=== PATIENT | female | born 1950 | race Caucasian/White ===

== ENCOUNTER 2020-06-08 22:28 | Inpatient (IN) | payer MEDICARE ==
[~2020-06-08] VITALS: Ht 165.1 cm; Wt 82.3 kg
[2020-06-08] MEDS ORDERED: SODIUM CHLORIDE 0.9% 1,000 ML IV ONE (22:41)
--- NOTE | 2020-06-08 22:42 | NUR ---
WILL HOLD DOPATMINE DRIP PER MD ALEXANDER. WILL AWAIT FOR BASELINE BLOOD PRESSURE TO EVAQLUATE NEEDS FOR MEDICATIONS.
[2020-06-08] MEDS ORDERED: EZET10TA70 PO (22:57)
[2020-06-08] MEDS ORDERED: ALPR0.5T7 PO (22:57)
[2020-06-08] MEDS ORDERED: ASPI-496 PO (22:57)
[2020-06-08] MEDS ORDERED: ZOLP10TA PO (22:57)
[2020-06-08] MEDS ORDERED: ALBU90AE INH ×2 (22:57)
[2020-06-08] MEDS ORDERED: MONT10TA6 PO (22:57)
[2020-06-08] MEDS ORDERED: TIZA4CAP PO (22:57)
[2020-06-08] MEDS ORDERED: ATOR-2 PO (22:57)
[2020-06-08] MEDS ORDERED: VENL150C PO (22:57)
[2020-06-08] MEDS ORDERED: FLUT1AER INH (22:57)
[2020-06-08] MEDS ORDERED: LEVO125T5 PO (22:57)
[2020-06-08] MEDS ORDERED: METO25TA35 PO (22:57)
[2020-06-08] MEDS ORDERED: SODIUM CHLORIDE FLUSH 10ML SYR IVF ONE (23:00)
[2020-06-08] MEDS ORDERED: ONDANSETRON 2MG/ML, 2ML IVPush ONE (23:00)
[2020-06-08] MEDS ORDERED: MORPHINE SULFATE 4 MG/ML, 1ML IVPush PRN (23:00)
--- NOTE | 2020-06-08 23:18 | NUR ---
PATIENT UPDATED ON PLAN OF CARE. PUREWICK PLACED TO AID PATIENT IN URINATION. PATIENT IS UNSAFE TO STAND UP R/T BLOOD PRESSURE.
[2020-06-09] VITALS (12 sets, daily range): BP systolic 130–170; BP diastolic 80–95
--- NOTE | 2020-06-09 00:01 | NUR ---
PT REQUESTING ICE CHIPS. INFORMED. ICE CHIPS PROVIDED PT PLEASANT AND DENIES FURTHER NEEDS AT THIS TIME.
[2020-06-09] MEDS ORDERED: ACETAMINOPHEN 325 MG TABLET PO PRN (00:30)
[2020-06-09] MEDS: HEPARIN 5,000 UNITS/ML, 1ML SQ SCH ×3 (01:56→17:53)
[2020-06-09] MEDS: SODIUM CHLORIDE 0.9% 1,000 ML IV SCH ×3 (01:57→08:04)
[2020-06-09] MEDS ORDERED: CEFTRIAXONE PMX 1GM/50ML 50 ML IV SCH (02:00)
[2020-06-09 02:59] LABS: CHLORIDE,URINE RANDOM 72 mmol/L; POTASSIUM,URINE RANDOM 35 mmol/L; SODIUM,URINE RANDOM 56 mmol/L
[2020-06-09] MEDS: LEVOTHYROXINE 125 MCG TABLET PO SCH (05:43)
[2020-06-09] MEDS: EZETIMIBE 10 MG TABLET PO SCH (08:01)
[2020-06-09] MEDS: MONTELUKAST 10 MG TABLET PO SCH (08:02)
[2020-06-09] MEDS: SENNA/DOCUSATE TABLET PO SCH (08:02)
[2020-06-09] MEDS: ASPIRIN 81 MG TABLET EC PO SCH (08:02)
[2020-06-09] MEDS: NICOTINE 14MG/24 HR PATCH.TD24 TD SCH (08:02)
[2020-06-09] MEDS: FLUTICASONE/VILANTEROL 100-25MCG/INH INH SCH (10:06)
[2020-06-09] MEDS ORDERED: ZOLPIDEM 10MG TABLET PO PRN (13:30)
[2020-06-09] MEDS: METOPROLOL TARTRATE 25 MG TAB PO SCH (20:47)
[2020-06-09] MEDS ORDERED: ATORVASTATIN 80 MG TABLET PO SCH (21:00)
[2020-06-10 00:58] VITALS: BP 148/84
[2020-06-10] MEDS: HEPARIN 5,000 UNITS/ML, 1ML SQ SCH ×3 (02:21→17:21)
[2020-06-10 05:22] LABS: BASOPHILS % (AUTO) 1 % (0-1); EOSINOPHILS # (AUTO) 0.79 x10^3/uL (0-0.4); EOSINOPHILS % (AUTO) 8 % (1-7); LYMPHOCYTES % (AUTO) 23 % (22-44); MD NO; MEAN CORPUSCULAR HEMOGLOBIN 33.6 pg (27.0-34.8); MEAN CORPUSCULAR HGB CONC 33.2 g/dL (32.4-35.8); MEAN CORPUSCULAR VOLUME 101.3 fL (80-100); MEAN PLATELET VOLUME 9.4 fL (7.4-10.4); MONOCYTES # (AUTO) 0.55 x10^3/uL (0.2-0.8); MONOCYTES % (AUTO) 6 % (2-9); NEUTROPHILS # (AUTO) 6.15 x10^3/uL (1.8-6.8); NEUTROPHILS % (AUTO) 62 % (42-75); PLATELET COUNT 242 x10^3/uL (130-400); RED BLOOD COUNT 3.67 x10^6/uL (3.82-5.3); RED CELL DISTRIBUTION WIDTH 13.3 % (9.6-15.2)
[2020-06-10 05:35] LABS: CHLORIDE 113 mmol/L (98-107)
[2020-06-10 05:46] LABS: ANION GAP 7 mmol/L (5-15); CALCIUM 8.5 mg/dL (8.5-10.1); CREATININE 1.06 mg/dL (0.55-1.02)
[2020-06-10] MEDS: LEVOTHYROXINE 125 MCG TABLET PO SCH (06:03)
[2020-06-10] MEDS ORDERED: AMLODIPINE 10 MG TAB PO ONE (07:30)
[2020-06-10] MEDS: FLUTICASONE/VILANTEROL 100-25MCG/INH INH SCH (07:54)
[2020-06-10] MEDS: ASPIRIN 81 MG TABLET EC PO SCH (07:55)
[2020-06-10] MEDS: MONTELUKAST 10 MG TABLET PO SCH (07:56)
[2020-06-10] MEDS: METOPROLOL TARTRATE 25 MG TAB PO SCH (07:56)
[2020-06-10] MEDS: SENNA/DOCUSATE TABLET PO SCH (07:57)
[2020-06-10] MEDS: EZETIMIBE 10 MG TABLET PO SCH (07:57)
[2020-06-10] MEDS: NICOTINE 14MG/24 HR PATCH.TD24 TD SCH (07:58)
[2020-06-10 08:35] VITALS: BP 163/88
[2020-06-10] MEDS ORDERED: TIZANIDINE 4MG TABLET PO SCH (09:00)
[2020-06-10] MEDS ORDERED: ALBUTEROL HFA 90 MCG/SPRAY INH SCH (09:00)
[2020-06-10] MEDS ORDERED: VENLAFAXINE XR 37.5MG CAP.ER.24H PO SCH (09:00)
[2020-06-10 12:07] VITALS: BP 134/82
[2020-06-10] MEDS ORDERED: CEFD300C37 PO (14:25)
== END 2020-06-10 19:38 | disposition home or self-care (01) | DRG 871 ==
LOC: ED 23:24 → EDIP 06-09 00:36 → 4WST 06-09 01:41
PROVIDERS: ADMIT Family Medicine; ATTEND Internal Medicine
DX: A41.9 Sepsis, unspecified organism (principal); N17.0 Acute kidney failure with tubular necrosis; F13.20 Sedative, hypnotic or anxiolytic dependence, uncomplicated; E87.2 Acidosis; N30.90 Cystitis, unspecified without hematuria; J44.9 Chronic obstructive pulmonary disease, unspecified; F17.210 Nicotine dependence, cigarettes, uncomplicated; E78.00 Pure hypercholesterolemia, unspecified; E03.9 Hypothyroidism, unspecified; B96.20 Unspecified Escherichia coli [E. coli] as the cause of diseases classified elsewhere; F43.10 Post-traumatic stress disorder, unspecified; I10 Essential (primary) hypertension; I25.10 Atherosclerotic heart disease of native coronary artery without angina pectoris; I25.2 Old myocardial infarction
CPT/HCPCS: 36415; 80048; 82436; 84133; 84300; 85025; 99291; 99406; G0378; J0696; J1644; J7030